=== PATIENT | male | born 1960 | race Two or more races ===

== ENCOUNTER 2020-02-28 12:44 | Emergency (ER) | payer SELFPAY ==
--- NOTE | 2020-02-28 13:04 | ER Document Report ---
ED Medical Screen (RME) - General Chief Complaint: Head Injury Stated Complaint: HEAD INJURY Time Seen by Provider: 02/28/20 12:52 Primary Care Provider: LAKESHA BRITO [Primary Care Provider] - Follow up as needed Mode of Arrival: Ambulatory Notes: Patient states he hit his head about 10 days on the ladder of a truck. He states he was lightheaded and had a little headache that came and went. He states he then got poison eliezer and took Benadryl Monday both the cream and the pills. He states on he started feeling very foggy dizzy and pain to the left eye anytime he moved. He states he became very dizzy when he moved. He has not slept in 3 nights. He states he has been sweating anytime he tries to do anything he is become very fatigued. He was trying to drink water because he thought he might be dehydrated but every time he tries to drink water or eat food for the last 2 days he has been vomiting. I did speak with Dr. holland he stated he could be diabetes, head injury with subdural hematoma or any other head and I am going on to please get labs and a head CT and neck CT. These have been ordered. I have greeted and performed a rapid initial assessment of this patient. A comprehensive ED assessment and evaluation of the patient, analysis of test results and completion of medical decision making process will be conducted by an additional ED providers. - Related Data Allergies/Adverse Reactions: No Known Allergies Allergy (Verified 02/28/20 13:06) Physical Exam - Vital signs Vitals: Temp Pulse Resp BP Pulse Ox 97.9 F 54 L 14 129/86 H 99 02/28/20 12:55 02/28/20 12:55 02/28/20 12:55 02/28/20 12:55 02/28/20 12:55 Course - Vital Signs Vital signs: Temp Pulse Resp BP Pulse Ox 97.9 F 54 L 14 129/86 H 99 02/28/20 12:55 02/28/20 12:55 02/28/20 12:55 02/28/20 12:55 02/28/20 12:55 Doctor's Discharge - Discharge Referrals: LAKESHA BRITO [Primary Care Provider] - Follow up as needed
--- NOTE | 2020-02-28 13:27 | RADIOLOGY REPORT (SQ) ---
EXAM DESCRIPTION: CHEST 2 VIEWS IMAGES COMPLETED DATE/TIME: 02/28/2020 1:18 pm REASON FOR STUDY: Head injury neurological changes COMPARISON: None. EXAM PARAMETERS: NUMBER OF VIEWS: two views TECHNIQUE: Digital Frontal and Lateral radiographic views of the chest acquired. RADIATION DOSE: NA LIMITATIONS: none FINDINGS: LUNGS AND PLEURA: No opacities, masses or pneumothorax. No pleural effusion. MEDIASTINUM AND HILAR STRUCTURES: No masses or contour abnormalities. HEART AND VASCULAR STRUCTURES: Heart normal size. No evidence for failure. BONES: No acute findings. HARDWARE: None in the chest. OTHER: No other significant finding. IMPRESSION: NO ACUTE RADIOGRAPHIC FINDING IN THE CHEST. TECHNICAL DOCUMENTATION: JOB ID: [id number] 2010 [employer]- All Rights Reserved Reading location - IP/workstation name: [email or web address]
--- NOTE | 2020-02-28 13:34 | RADIOLOGY REPORT (SQ) ---
EXAM DESCRIPTION: CT HEAD WITHOUT IMAGES COMPLETED DATE/TIME: 02/28/2020 1:23 pm REASON FOR STUDY: Head injury neurological changes COMPARISON: None. TECHNIQUE: Axial images acquired through the brain without intravenous contrast. Images reviewed wi th bone, brain and subdural windows. Additional sagittal and coronal reconstructions were generated. Images stored on PACS. All CT scanners at this facility use dose modulation, iterative reconstruction, and/or weight based d osing when appropriate to reduce radiation dose to as low as reasonably achievable (ALARA). [facility]: Dose Right [facility]: CareDose [facility]: Dose Right [facility]: Teradose 4D [facility]: [employer] RADIATION DOSE: CT Rad equipment meets quality standard of care and radiation dose reduction techniq ues were employed. CTDIvol: 53.2 mGy. DLP: 1097 mGy-cm. mGy. LIMITATIONS: None. FINDINGS: VENTRICLES: Normal size and contour. CEREBRUM: No masses. No hemorrhage. No midline shift. No evidence for acute infarction. Normal gra y/white matter differentiation. No areas of low density in the white matter. CEREBELLUM: No masses. No hemorrhage. No alteration of density. No evidence for acute infarction. EXTRAAXIAL SPACES: No fluid collections. No masses. ORBITS AND GLOBE: No intra- or extraconal masses. Normal contour of globe without masses. CALVARIUM: No fracture. PARANASAL SINUSES: No fluid or mucosal thickening. SOFT TISSUES: No mass or hematoma. OTHER: The pituitary gland is slightly enlarged. IMPRESSION: No acute intracranial imaging finding. The pituitary gland is slightly enlarged. Recom mend MRI with contrast using pituitary protocol. EVIDENCE OF ACUTE STROKE: NO. COMMENT: Quality ID # [id number]: Final reports with documentation of one or more dose reduction techniques (e.g., Automated exposure control, adjustment of the mA and/or kV according to patient size, use of iterative reconstruction technique) TECHNICAL DOCUMENTATION: JOB ID: [id number] 2010 [employer]- All Rights Reserved Reading location - IP/workstation name: [email or web address]
--- NOTE | 2020-02-28 13:36 | RADIOLOGY REPORT (SQ) ---
EXAM DESCRIPTION: CT CERVICAL SPINE WITHOUT IMAGES COMPLETED DATE/TIME: 02/28/2020 1:23 pm REASON FOR STUDY: Head injury neurological changes COMPARISON: None. TECHNIQUE: Axial images acquired through the cervical spine without intravenous contrast. Images re viewed with lung, soft tissue and bone windows. Reconstructed coronal and sagittal MPR images review ed. Images stored on PACS. All CT scanners at this facility use dose modulation, iterative reconstruction, and/or weight based d osing when appropriate to reduce radiation dose to as low as reasonably achievable (ALARA). [facility]: Dose Right [facility]: CareDose [facility]: Dose Right [facility]: Teradose 4D [facility]: [employer] RADIATION DOSE: CT Rad equipment meets quality standard of care and radiation dose reduction techniq ues were employed. CTDIvol: 18.2 mGy. DLP: 403 mGy-cm. mGy. LIMITATIONS: None. FINDINGS: ALIGNMENT: Anatomic. MINERALIZATION: Normal. VERTEBRAL BODIES: No fractures or dislocation. DISCS: No significant disc disease. FACETS, LATERAL MASSES, POSTERIOR ELEMENTS: No fractures. No dislocation. No acute findings. HARDWARE: None in the spine. VISUALIZED RIBS: No fractures. LUNG APICES AND SOFT TISSUES: No significant or acute findings. OTHER: No other significant finding. IMPRESSION: NO ACUTE OR SIGNIFICANT FINDINGS IN THE CERVICAL SPINE. TECHNICAL DOCUMENTATION: JOB ID: [id number] Quality ID # [id number]: Final reports with documentation of one or more dose reduction techniques (e.g., Au tomated exposure control, adjustment of the mA and/or kV according to patient size, use of iterative reconstruction technique) 2010 [employer]- All Rights Reserved Reading location - IP/workstation name: [email or web address]
[2020-02-28 14:08] LABS: ABSOLUTE MONOCYTES (AUTO) 0.3 10^3/uL (0.1-1.4); ABSOLUTE NEUT (AUTO) 5.6 10^3/uL (1.7-8.2); BASOPHILS % (AUTO) 0.2 % (0-2); EOSINOPHILS % (AUTO) 0.2 % (0-6); HEMATOCRIT 43.1 % (37.9-51.0); HEMOGLOBIN 14.6 g/dL (13.5-17.0); LYMPHOCYTES % (AUTO) 14.2 % (13-45); MEAN CORPUSCULAR HGB CONC 33.9 g/dL (32.0-36.0); MEAN CORPUSCULAR VOLUME 86 fl (80-97); MONOCYTES % (AUTO) 3.9 % (3-13); PLATELET COUNT 272 10^3/uL (150-450); RED BLOOD COUNT 5.03 10^6/uL (4.35-5.55); RED CELL DISTRIBUTION WIDTH 14.1 % (11.5-14.0); SEGMENTED NEUTROPHILS % (AUTO) 81.5 % (42-78); TOTAL CELLS COUNTED % (AUTO) 100 %; WHITE BLOOD COUNT 6.9 10^3/uL (4.0-10.5)
[2020-02-28 14:09] LABS: VENOUS BLOOD BASE EXCESS -0.3 mmol/L; VENOUS BLOOD HCO3 26.6 mmol/L (20-32); VENOUS BLOOD PCO2 51.8 mmHg (35-63); VENOUS BLOOD PH 7.33 (7.30-7.42)
[2020-02-28 14:12] LABS: APPEARANCE,URINE SLIGHTLY-CLOUDY; BILIRUBIN,URINE NEGATIVE (NEGATIVE); COLOR,URINE YELLOW; GLUCOSE, URINE NEGATIVE (NEGATIVE); KETONES,URINE NEGATIVE (NEGATIVE); LEUKOCYTE ESTERASE,URINE NEGATIVE (NEGATIVE); NITRITE,URINE NEGATIVE (NEGATIVE); PROTEIN,URINE 30 mg/dL (NEGATIVE); URINE SPECIFIC GRAVITY 1.029; UROBILINOGEN,URINE NEGATIVE mg/dL (<2.0)
[2020-02-28 14:13] LABS: PROTHROMBIN TIME 13.4 SEC (11.4-15.4)
[2020-02-28 14:14] LABS: PARTIAL THROMBOPLASTIN TIME 30.2 SEC (23.5-35.8)
[2020-02-28 14:29] LABS: ALBUMIN 5.1 g/dL (3.5-5.0); ALKALINE PHOSPHATASE 86 U/L (38-126); ANION GAP 9 (5-19); ASPARTATE AMINO TRANSFERASE 23 U/L (17-59); BILIRUBIN,DIRECT 0.2 mg/dL (0.0-0.4); BILIRUBIN,TOTAL 0.8 mg/dL (0.2-1.3); BLOOD UREA NITROGEN 20 mg/dL (7-20); CALCIUM 9.7 mg/dL (8.4-10.2); CARBON DIOXIDE 29 mmol/L (22-30); CHLORIDE 100 mmol/L (98-107); GLUCOSE 132 mg/dL (75-110); POTASSIUM 4.4 mmol/L (3.6-5.0); TOTAL PROTEIN 8.5 g/dL (6.3-8.2)
[2020-02-28 14:32] LABS: URINE AMPHETAMINES SCREEN NEGATIVE; URINE BARBITURATES SCREEN NEGATIVE; URINE BENZODIAZEPINES SCREEN NEGATIVE; URINE COCAINE SCREEN NEGATIVE; URINE MARIJUANA (THC) SCREEN NEGATIVE; URINE METHADONE SCREEN NEGATIVE; URINE PHENCYCLIDINE SCREEN NEGATIVE
[2020-02-28] MEDS ORDERED: ONDANSETRON 4 MG TAB.RAPDIS PO ONE (20:28)
[2020-02-28] MEDS ORDERED: MECLIZINE HCL 25 MG TABLET PO ONE (20:28)
--- NOTE | 2020-02-28 20:36 | ER Document Report ---
ED General - General Chief Complaint: Head Injury Stated Complaint: HEAD INJURY Time Seen by Provider: 02/28/20 12:52 Primary Care Provider: KAYA MAE MD [ACTIVE STAFF] - 03/02/20 (call office Monday03/02/2020 to schedule appointment to establish care and follow up on pituitary findings on CAT scan) LAKESHA BRITO [Primary Care Provider] - Follow up as needed Mode of Arrival: Ambulatory - HPI Context: This is a 59-year-old male who presents to the emergency department complaining of headache, dizziness, nausea started 2 days ago. Patient states he was getting a ladder out of his truck and the ladder fell and hit him on the top of the left side of his head. Patient denies loss of consciousness. Patient states since then he is felt "foggy", lightheaded, dizzy, and has had headache along with nausea. Patient states that he does not like to take pills and he solis s not taken anything for the pain. Patient has been taking Benadryl on a regular basis for the past 4 to 5 days because of a recent exposure to poison eliezer. Patient states that movement and activity exacerbate his symptoms. Patient states that laying still slightly improves his symptoms. Patient states his pain is a 3 out of 5 and describes it as sharp. Similar symptoms previously: No Recently seen / treated by doctor: No - Related Data Allergies/Adverse Reactions: No Known Allergies Allergy (Verified 02/28/20 13:06) Past Medical History - General Information source: Patient - Social History Smoking Status: Never Smoker Chew tobacco use (# tins/day): No Frequency of alcohol use: None Drug Abuse: None Family History: Reviewed & Not Pertinent Review of Systems - Review of Systems Constitutional: See HPI EENT: denies: Double vision Cardiovascular: No symptoms reported Respiratory: denies: Short of breath Gastrointestinal: Nausea Genitourinary: No symptoms reported Male Genitourinary: No symptoms reported Musculoskeletal: No symptoms reported Skin: No symptoms reported Hematologic/Lymphatic: No symptoms reported Neurological/Psychological: See HPI, Headaches -: Yes All other systems reviewed and negative Physical Exam - Vital signs Vitals: Temp Pulse Resp BP Pulse Ox 97.9 F 54 L 14 129/86 H 99 02/28/20 12:55 02/28/20 12:55 02/28/20 12:55 02/28/20 12:55 02/28/20 12:55 - Notes Notes: CONSTITUTIONAL [Vital signs reviewed, Patient appears comfortable, Alert and oriented X 3, Normal stature.] HEAD [Atraumatic, Normocephalic.] EYES [Eyes are normal to inspection, No discharge from eyes, Extraocular muscles intact, Sclera are normal, Conjunctiva are normal.] NECK [Normal ROM, No jugular venous distention, No meningeal signs, no carotid bruit.] RESPIRATORY CHEST [Chest is nontender, Breath sounds normal, No respiratory distress.] CARDIOVASCULAR [RRR, No murmurs, Normal S1 S2, No rub, No gallop.] ABDOMEN [Abdomen is nontender, No pulsatile masses, No other masses, Bowel sounds normal, No distension, No peritoneal signs, No hernias.] BACK [There is no CVA Tenderness, There is no tenderness to palpation, Normal inspection.] UPPER EXTREMITY [Inspection normal, No cyanosis, No clubbing, No edema, 2+ radial pulses.] LOWER EXTREMITY [Inspection normal, No cyanosis, No clubbing, No edema, No calf tenderness, 2+ femoral pulses.] NEURO [No focal motor deficits, No focal sensory deficits, Speech normal.] SKIN [Skin is warm, Skin is dry, Skin is normal color.] LYMPHATIC [No adenopathy in neck.] PSYCHIATRIC [Normal affect. ] Course - Re-evaluation Re-evalutation: 02/28/20 20:44 Results of ED MSE discussed with patient and patient's significant other. Findings on CT scan of the head, specifically lack of intracranial trauma and presence of enlarged pituitary and recommendation of follow-up MRI with contrast to further evaluate enlarged pituitary discussed with patient and patient's significant other. Patient and patient's significant other decided that they would wait on the MRI with contrast at this time and would follow-up as an outpatient. This MD offered to give the patient a referral to a local primary care doctor to establish care and follow-up on the results of the CT of the head and follow-up with MRI with contrast. A copy of the CAT scan report was provided to the patient and patient significant other. All questions were answered prior to discharge. Emergency signs and symptoms, reasons to return to the emergency department discussed with patient and patient's significant other. Differential diagnosis/medical decision making: Patient presentation and findings on ED MSE and physical exam seem most consistent with a head contusion and somatic symptoms after the injury. I do not believe he has a true postconcussive syndrome since he had no loss of consciousness. Patient does not complain of issues with persistent double vision. I believe the findings of large pituitary are incidental and mildly continued to be followed up, they do not need to be followed up necessarily today as I believe his symptoms were caused by traumatic injury given the patient's history. Apparently did have the MRI of the head done today was discussed with patient and patient's significant other and they decided to defer that. They were encouraged by this MD to return at any time if they decide to seek further care before following up with the PCP that they were referred to. - Vital Signs Vital signs: Temp Pulse Resp BP Pulse Ox 97.9 F 54 L 14 129/86 H 99 02/28/20 12:55 02/28/20 12:55 02/28/20 12:55 02/28/20 12:55 02/28/20 12:55 - Laboratory Result Diagrams: 02/28/20 13:33 02/28/20 13:33 Laboratory results interpreted by me: 02/28/20 02/28/20 02/28/20 13:08 13:33 13:33 RDW 14.1 H Seg Neutrophils % 81.5 H Glucose 132 H POC Glucose 141 H Total Protein 8.5 H Albumin 5.1 H Urine Protein Urine Ascorbic Acid 02/28/20 13:33 RDW Seg Neutrophils % Glucose POC Glucose Total Protein Albumin Urine Protein 30 H Urine Ascorbic Acid 40 H - Diagnostic Test Radiology reviewed: Reports reviewed Discharge - Discharge Clinical Impression: Nausea, Dizziness, Enlarged pituitary gland Head contusion Qualifiers: Encounter type: initial encounter Contusion of head detail: scalp Qualified Code(s): S00.03XA - Contusion of scalp, initial encounter Condition: Stable Disposition: HOME, SELF-CARE Additional Instructions: Return to the Emergency Department without delay if any worse. HOME CARE INSTRUCTIONS & INFORMATION: Thank you for choosing us for your medical needs. We hope you're satisfied with the care you received. After you leave, you must properly care for your problem and, at the same time, observe its progress. Any condition can change. Some illnesses can change rapidly over hours or days. If your condition worsens, return to the Emergency Department or see your physician promptly. ABOUT YOUR X-RAYS AND EKG'S: If you had an EKG or X-rays taken, they have been read by the Emergency Physician. The X-rays and EKG's will also be read by a Radiologist or Bicycle Rental Clerk within 24 hours. If discrepancies are noted, you will be notified by telephone. Please be certain the ED has a correct telephone number & address where you can be reached. Also, realize that some fractures or abnormalities do not show up on initial X-rays. If your symptoms continue, see your physician. ABOUT YOUR LABORATORY TEST: If you had laboratory tests, the results have been reviewed by the Emergency Physician. Some test results (for example cultures) may not be available for several days. You will be contacted if any test result shows you need additional treatment. Please be certain the ED has a correct telephone number and address where you can be reached. ABOUT YOUR MEDICATIONS: You will receive instructions on how to take your medicine on the prescription label you receive. Additional information may be provided by the Pharmacy. If you have questions afterwards, call the ED for clarification or further instructions. Some prescribed medications may cause drowsiness. Do not perform tasks such as driving a car or operating machinery without consulting your Pharmacist. If you feel you need a refill of pain medication, your condition will need re-evaluation. Please do not call for a refill of any medication. ABOUT YOUR SIGNATURE: Signature of this document acknowledges to followin. Understanding that you received emergency treatment and that you may be released before al medical problems are known or treated. Please be certain the ED has a correct phone number & address where you can be reached. 2. Acknowledgement that you will arrange for follow-up care as recommended. 3. Authorization for the Emergency Physician to provide information to your follow-up Physician in order to maximize your care. AT ANY TIME, IF YOUR SYMPTOMS CHANGE SIGNIFICANTLY OR WORSEN OR YOU DEVELOP NEW SYMPTOMS, RETURN TO THE EMERGENCY DEPARTMENT IMMEDIATELY FOR RE-EVALUATION. OUR GOAL IS TO PROVIDE EXCELLENT MEDICAL CARE! WE HOPE THAT WE HAVE MET YOUR EXPECTATIONS DURING YOUR EMERGENCY DEPARTMENT VISIT AND THAT YOU FEEL YOU HAVE RECEIVED EXCELLENT CARE! Contusion Your injury has resulted in a contusion -- a crushing of the deep tissues. No injury to important structures was detected during the physician's exam. Contusions vary in the amount of pain they cause, and in the length of time required for healing. Typically, the area will become bruised, and will remain painful to touch for two or three weeks. However, most patients are back to working and playing within a few days. After the initial period of rest and cold-packs, your symptoms (together with the doctor's recommendations) will determine how rapidly you can get back to full activity. Usually this means "do what feels okay, but don't do things that hurt." If re-examination was recommended, it's important to follow up as instructed. Call the doctor or return any time if pain increases, if swelling becomes severe, if you develop numbness or weakness in an injured extremity, or if any other alarming symptoms occur. Prescriptions: Ondansetron [Zofran Odt 4 mg Tablet] 1 tab PO Q8HP PRN #15 tab.rapdis PRN Reason: For Nausea/Vomiting Meclizine HCl [Antivert 25 mg Tablet] 25 mg PO TID PRN #21 tablet PRN Reason: Referrals: LOCALMD,NO [Primary Care Provider] - Follow up as needed KAYA MAE MD [ACTIVE STAFF] - 03/02/20 (call office Monday03/02/2020 to schedule appointment to establish care and follow up on pituitary findings on CAT scan)
[2020-02-28 20:46] VITALS: BP 147/86
== END 2020-02-28 20:47 | disposition home or self-care (01) ==
LOC: ER 12:44
DX: S00.03XA Contusion of scalp, initial encounter (principal); R51 Headache; R42 Dizziness and giddiness; R11.0 Nausea; R93.0 Abnormal findings on diagnostic imaging of skull and head, not elsewhere classified; W22.8XXA Striking against or struck by other objects, initial encounter
CPT/HCPCS: 99285; 36415; 87086; 82962; 83690; 85025; 85610; 85730; 80053; 81001; 80307; 83036; 82803; 71046; 70450; 72125; S0119